=== PATIENT | female | born 1960 | race Caucasian/White ===

== ENCOUNTER 2016-06-02 09:39 | Inpatient (IN) | payer BC ==
[2016-05-12 10:49] VITALS: Ht 154.9 cm; Wt 88.9 kg
[2016-05-12 11:41] VITALS: BP_SYST 130; RESP 20
[2016-06-02] VITALS (33 sets, daily range): BP systolic 106–149; RESP 10–20; TEMP 97.2–99.6
[~2016-06-02] VITALS: Ht 154.9 cm; Wt 88.9 kg
[2016-06-02] MEDS ORDERED: VANCOMYCIN 1,000 MG in SODIUM CHLORIDE 0.9% 250 ML IV ONE (09:45)
[2016-06-02] MEDS ORDERED: CEFAZOLIN 2,000 MG in SODIUM CHLORIDE 0.9% 100 ML IV ONE (09:45)
[2016-06-02] MEDS ORDERED: ROPIVACAINE 0.5% 139 MG, EPINEPHrine 1:1,000 0.2 MG, KETOROLAC INJ 30 MG, MORPHINE 10 MG SUBQ ONE ×4 (09:45)
[2016-06-02] MEDS ORDERED: MIDAZOLAM 2 MG/2 ML INJ IV ONE ×2 (09:50→13:00)
[2016-06-02] MEDS ORDERED: LIDOCAINE 1% BUFFERED 1 ML SYR INTRADERM PRN (09:50)
[2016-06-02] MEDS ORDERED: ONDANSETRON 4 MG VIAL IV ONE (09:50)
[2016-06-02] MEDS ORDERED: LACT RINGERS 1,000 ML IV SCH ×2 (09:50→16:15)
[2016-06-02] MEDS ORDERED: SCOPOLAMINE PATCH TRANSDERM ONE (09:50)
[2016-06-02] MEDS ORDERED: GLYCOPYRROLATE 0.2 MG/ML VIAL IV ONE ×2 (09:50→09:59)
[2016-06-02] MEDS ORDERED: BACITRACIN 50,000 UNITS INJ IRRIG ONE (09:58)
[2016-06-02] MEDS ORDERED: BACITRACIN OINT TOPICAL ONE (09:58)
[2016-06-02] MEDS ORDERED: DILAUDID 1 MG/ML AMP IV ONE (09:59)
[2016-06-02] MEDS ORDERED: PROPOFOL 50ML PER ML IV ONE (09:59)
[2016-06-02] MEDS ORDERED: ROCURONIUM 50 MG VIAL IV ONE (09:59)
[2016-06-02] MEDS ORDERED: NEOSTIGMINE 10 MG/10 ML VIAL IV ONE (09:59)
[2016-06-02] MEDS ORDERED: LIDOCAINE 2% SYR 5 ML IV ONE (09:59)
[2016-06-02] MEDS ORDERED: FENTANYL 100 MCG/2 ML AMP IV ONE (09:59)
[2016-06-02] MEDS ORDERED: ACETAMINOPHEN 1,000 MG/100 ML IV ONE (09:59)
[2016-06-02] MEDS ORDERED: MIDAZOLAM 2 MG/2 ML INJ ONE (12:45)
[2016-06-02] MEDS ORDERED: ROPIVACAINE 5 MG/ML 30 ML EPIDURAL ONE (13:45)
[2016-06-02] MEDS ORDERED: OXYCODONE 5 MG TAB PO PRN (14:10)
[2016-06-02] MEDS ORDERED: MEPERIDINE 25 MG/ML IV PRN (14:10)
[2016-06-02] MEDS ORDERED: DILAUDID 1 MG/ML AMP IV PRN (14:10)
[2016-06-02] MEDS ORDERED: ONDANSETRON 4 MG VIAL IV PRN (14:10)
[2016-06-02] MEDS ORDERED: MORPHINE 2 MG/ML SYR IV PRN (14:10)
[2016-06-02] MEDS ORDERED: MORPHINE 4 MG/ML SYR IV PRN ×2 (14:10→16:15)
[2016-06-02] MEDS ORDERED: ZOLPIDEM 5 MG TAB PO PRN (16:15)
[2016-06-02] MEDS ORDERED: PHARMACY TO DOSE VANCOMYCIN IV SCH (16:15)
[2016-06-02] MEDS ORDERED: SALINE FLUSH 10 ML FLUSH PRN (16:15)
[2016-06-02] MEDS ORDERED: MAG HYDROX 30 ML UDC PO PRN (16:15)
[2016-06-02] MEDS ORDERED: PROMETHAZINE 25 MG/ML VIAL IM/IV PRN (16:15)
[2016-06-02] MEDS: ONDANSETRON 4 MG VIAL IV PRN ×2 (18:13→19:35)
[2016-06-02] MEDS: SALINE FLUSH 10 ML FLUSH SCH (19:39)
[2016-06-02] MEDS: CEFAZOLIN 2,000 MG in SODIUM CHLORIDE 0.9% 100 ML IV SCH (20:26)
[2016-06-02] MEDS ORDERED: MISSING DOSE XX ONE (20:35)
[2016-06-02] MEDS ORDERED: DIPHENHYDRAMINE 25 MG CAP PO PRN (20:40)
[2016-06-02] MEDS: PRAVASTATIN 40 MG TAB PO SCH (21:33)
[2016-06-02] MEDS: SENNA 8.6 MG TAB PO SCH (21:34)
[2016-06-02] MEDS: DOCUSATE SOD 100 MG CAP PO SCH (21:34)
[2016-06-02] MEDS: VANCOMYCIN 1,250 MG in SODIUM CHLORIDE 0.9% 250 ML IV SCH (23:30)
[2016-06-03] MEDS: CEFAZOLIN 2,000 MG in SODIUM CHLORIDE 0.9% 100 ML IV SCH ×3 (01:48→13:33)
[2016-06-03 02:15] VITALS: BP_SYST 111; RESP 16; TEMP 97.2
[2016-06-03] MEDS: Rivaroxaban 10 MG TAB PO SCH (05:36)
[2016-06-03] MEDS: SODIUM CHLORIDE 0.9% FLUSH BAG 500 ML IV SCH (05:36)
[2016-06-03 07:08] VITALS: BP_SYST 114; RESP 18; TEMP 98.1
[2016-06-03] MEDS: SALINE FLUSH 10 ML FLUSH SCH ×2 (08:56→20:24)
[2016-06-03] MEDS: MAG HYDROX 30 ML UDC PO SCH (08:56)
[2016-06-03] MEDS: POLYETHYLENE GLYCOL 17 GM PACKET PO SCH (08:56)
[2016-06-03] MEDS: DOCUSATE SOD 100 MG CAP PO SCH ×2 (08:56→20:24)
[2016-06-03] MEDS: SENNA 8.6 MG TAB PO SCH ×2 (08:56→20:24)
[2016-06-03] MEDS ORDERED: GLUCAGON 1 MG VIAL IM PRN (10:55)
[2016-06-03] MEDS ORDERED: DEXTROSE 50% SYRINGE 50 ML IV PRN (10:55)
[2016-06-03] MEDS ORDERED: REMOVE TRANSDERMAL PATCH TOPICAL ONE (11:25)
[2016-06-03] MEDS: VANCOMYCIN 1,250 MG in SODIUM CHLORIDE 0.9% 250 ML IV SCH (11:31)
[2016-06-03 11:49] VITALS: BP_SYST 110; RESP 18; TEMP 98.2
[2016-06-03] MEDS: KETOROLAC 30 MG/ML VIAL IV PRN ×2 (13:58→20:35)
[2016-06-03 15:18] VITALS: BP_SYST 106; RESP 18; TEMP 98.6
[2016-06-03] MEDS ORDERED: BISACODYL 10 MG SUPP RECTAL PRN (18:55)
[2016-06-03 19:59] VITALS: BP_SYST 130; RESP 16; TEMP 99.1
[2016-06-03] MEDS: PRAVASTATIN 40 MG TAB PO SCH (20:24)
[2016-06-03 22:50] VITALS: BP_SYST 104; RESP 16; TEMP 98
[2016-06-04 02:28] VITALS: BP_SYST 121; RESP 16; TEMP 98.5
[2016-06-04] MEDS: SODIUM CHLORIDE 0.9% FLUSH BAG 500 ML IV SCH (05:50)
[2016-06-04] MEDS: Rivaroxaban 10 MG TAB PO SCH (06:11)
[2016-06-04 07:57] VITALS: BP_SYST 107; RESP 18; TEMP 99.3
[2016-06-04] MEDS: SENNA 8.6 MG TAB PO SCH (07:58)
[2016-06-04] MEDS: POLYETHYLENE GLYCOL 17 GM PACKET PO SCH (07:59)
[2016-06-04] MEDS: DOCUSATE SOD 100 MG CAP PO SCH (07:59)
[2016-06-04] MEDS: PRAVASTATIN 40 MG TAB PO SCH (07:59)
[2016-06-04] MEDS: MAG HYDROX 30 ML UDC PO SCH (07:59)
[2016-06-04] MEDS: SALINE FLUSH 10 ML FLUSH SCH (08:00)
[2016-06-04 11:54] VITALS: BP_SYST 107; RESP 18; TEMP 99.3
[2016-06-05] MEDS ORDERED: REMOVE SCOPALAMINE PATCH XX ONE (09:50)
== END 2016-06-04 13:41 | disposition home or self-care (01) | DRG 470 ==
LOC: ENPENDDIS 09:39 → SDS 09:39 → 2NO 17:26
PROVIDERS: ADMIT Internal Medicine; ATTEND Internal Medicine
PROC: 0SRD0J9 Replacement of Left Knee Joint with Synthetic Substitute, Cemented, Open Approach (ICD-10-PCS; principal; 2016-06-02 12:35)
DX: M17.12 Unilateral primary osteoarthritis, left knee (principal); E11.65 Type 2 diabetes mellitus with hyperglycemia; E78.5 Hyperlipidemia, unspecified; M25.561 Pain in right knee; L29.9 Pruritus, unspecified; T50.905A Adverse effect of unspecified drugs, medicaments and biological substances, initial encounter; Y92.9 Unspecified place or not applicable; E66.9 Obesity, unspecified; Z68.37 Body mass index [BMI] 37.0-37.9, adult; D72.829 Elevated white blood cell count, unspecified
CPT/HCPCS: 80048; 80053; 82947; 83036; 85014; 85018; 85025; 86850; 86900; 86901; 94762; 94799; 99232; 99238